=== PATIENT | female | born 1980 | race Caucasian/White ===

== ENCOUNTER → 2024-03-10 | Outpatient (REF) | payer OTHER | LOC: M LAB REF 16:09 | PROVIDERS: ATTEND Internal Medicine Endocrinology, Diabetes & Metabolism | DX: E04.2 Nontoxic multinodular goiter (principal) ==

== ENCOUNTER → 2025-06-16 | Outpatient (CLI) | payer OTHER | LOC: M WHC 14:34 | PROVIDERS: ATTEND Otolaryngology | DX: E04.2 Nontoxic multinodular goiter (principal) ==

== ENCOUNTER → 2025-07-10 | Outpatient (CLI) | payer OTHER ==
[~2025-07-10] MED LIST: LIDOCAINE 1% MDV 20 ML VIAL SC SCH
[2025-07-10 14:45] VITALS: BP 157/92; TEMP 98.9; O2SAT 99
== END ==
LOC: M IRPRO 14:17
PROVIDERS: ATTEND Otolaryngology
DX: E04.2 Nontoxic multinodular goiter (principal)